=== PATIENT | female | born 1995 | race African-American/Black ===

== ENCOUNTER 2021-11-02 17:09 | Emergency (ER) | payer SELFPAY ==
[~2021-11-02] VITALS: Ht 170.2 cm; Wt 72.7 kg
[2021-11-02] MEDS ORDERED: METR500 PO (18:24)
[2021-11-02] MEDS ORDERED: FLUC150T61 PO (18:24)
[2021-11-02 18:40] VITALS: BP 126/80
== END 2021-11-02 18:41 | disposition home or self-care (01) ==
LOC: EMS 17:17
DX: N76.0 Acute vaginitis (principal); F12.90 Cannabis use, unspecified, uncomplicated; Z88.0 Allergy status to penicillin
CPT/HCPCS: 99283; Z7502